=== PATIENT | female | born 1955 | race Caucasian/White ===

== ENCOUNTER → 2022-12-08 15:29 | Outpatient (BNVA) | payer MEDICARE, SELFPAY | PROVIDERS: Visit Provider Nurse Practitioner Family | DX: S69.92XA Unspecified injury of left wrist, hand and finger(s), initial encounter (principal); X58.XXXA Exposure to other specified factors, initial encounter; Y93.9 Activity, unspecified | CPT/HCPCS: 73110 ==

== ENCOUNTER → 2022-12-09 08:42 | Outpatient (BNVA) | payer MEDICARE, SELFPAY | PROVIDERS: Visit Provider Nurse Practitioner Family | DX: S62.102A Fracture of unspecified carpal bone, left wrist, initial encounter for closed fracture (principal); S52.502A Unspecified fracture of the lower end of left radius, initial encounter for closed fracture; V87.8XXA Person injured in other specified noncollision transport accidents involving motor vehicle (traffic), initial encounter; Y93.H2 Activity, gardening and landscaping | CPT/HCPCS: 73110; 99214 ==

== ENCOUNTER 2022-12-10 13:44 | Day surgery (SDC) | payer MEDICARE, SELFPAY ==
[2022-12-09 16:52] VITALS: BMI 20.3
[2022-12-10] MEDS: acetaminophen 1,000 MG/100 ML PIGGYBACK 400 MG IV (14:59)
[2022-12-10] MEDS: sodium chloride 0.9% 1,000 ML 30 ML IV (15:00)
[2022-12-10] MEDS: ketorolac 30 mg/mL INJ IVP (15:03)
[2022-12-10] MEDS: HYDROmorphone 1 mg/mL INJ 1 mL 0.5 MG IVP (15:12)
--- NOTE | 2022-12-10 15:32 | ANES.PREANE2 ---
Pre-Anesthetic Assessment Height/Weight: Height 1.7 m Weight 58.967 kg O2 Del Method Room Air 12/10/22 14:32 Preop Diagnosis: Left distal radius fracture Operation Date: 12/10/22 17:55 Proposed Procedures p ORIF Wrist ORIF Distal Radius 34045, S52.502A(Left) - Steve Ayers DO Familial anesthetic complications: none Was Beta Gómez taken within 24 hours: N/A Was Clonidine taken within 24 hours: N/A Last intake: Intake Last Liquid Date 12/09/22 Last Liquid Time 21:30 Last Solid Date 12/09/22 Last Solid Time 17:00 Social No alcohol and No tobacco Exam alert, oriented x 3, clear to auscultation bilaterally and regular rate & rhythm Airway Submandibular: within normal limits Cervical ROM: within normal limits Mallampati: Class II Dentition: full History/ROS No significant history except as noted Anesthetic Plan ASA status: 1 Anesthesia: General and Regional (specify below) (Left interscalene nerve blk) Medications/Allergies Home Medications Medication Instructions Recorded Confirmed Last Taken Type No Known Home Medications 12/08/22 12/09/22 Unknown History hydrocodone 5 mg-acetaminophen 325 1 tab PO Q6H PRN pain 7 days #28 12/10/22 Unknown Rx mg tablet tabs Allergies Allergy/AdvReac Type Severity Reaction Status Date / Time Penicillins Allergy ALGY-Hives Verified 12/09/22 16:49 Current Medications Generic Name Dose Route Start Last Admin Trade Name Freq PRN Reason Stop Dose Admin Hydromorphone HCl 0.5 mg 12/10/22 13:56 12/10/22 15:12 Hydromorphone 1 Mg/Ml Inj 1 Ml IVP 0.5 mg ONCE PRN Administration For preop pain/anxiety Sodium Chloride 1,000 mls @ 30 mls/hr 12/10/22 14:00 12/10/22 15:00 Sodium Chloride 0.9% IV 12/11/22 13:59 30 mls/hr .Q24H ANGELA Administration Data Anesthesia Cardiac Studies: No Data to Display Anesthesia Procedures Nerve Block Nerve Block 1: Main Anesthesia: general anesthesia Time Out Performed: Yes Consent: requested by attending/covering physician, from patient, risks and benefits reviewed and patient agrees to proceed Nerve block location: interscalene (left) Anesthesia monitors applied: pulse oximetry, EKG, BP cuff and oxygen Nerve block position: semi sitting Anesthetic Used: ropivicaine 0.5% Amount of anesthesia used (mL): 30 Ultrasound used to: recognize landmarks and visualize and ID brachial plexus Nerve Stimulator Used?: No Interscalene/Femoral BLK: 2 stimuplex 22 g needle used for position and inplane approach Injection: neg aspiration of heme Patient Tolerated Procedure: well Complications: none
--- NOTE | 2022-12-10 15:32 | W.PM.OPSUD ---
Surgery/Procedure H&P Update DATE OF PROCEDURE: December 10, 2022 DATE H&P PERFORMED: 12/08/22 CHANGES TO PREVIOUS DOCUMENTATION: None. No change in HPI from office visit on 12/08/2022. We talked about treatment options and through shared decision making patient elects to proceed with left distal radius open reduction internal fixation. All questions been answered at this time. Agrees to proceed with surgical intervention consent obtained. PREOP DIAGNOSIS: Left distal radius fracture PRIMARY INDICATION FOR PROCEDURE: Left distal radius fracture PLANNED PROCEDURE: Operation Date: 12/10/22 17:55 Proposed Procedures p ORIF Wrist ORIF Distal Radius 16209, S52.502A(Left) - Steve Ayers DO
[2022-12-10] MEDS: clindamycin 600 MG/50 ML PREMIX 100 MG IV (17:28)
[2022-12-10] MEDS: clindamycin 300 MG/50 ML PREMIX 100 MG IV (17:40)
--- NOTE | 2022-12-10 18:35 | PM.OP2 ---
Brief Operative Note Date of procedure: 12/10/22 Pre-op diagnosis: Left distal radius fracture Post-op diagnosis: same (Three-part intra-articular) Procedure Done: Left distal radius open reduction internal fixation, three-part intra-articular Surgeon: Steve Ayers Estimated blood loss (mL): 10 Complications: none Post-op Plan: Patient taken to PACU in stable condition recovering well, regional anesthesia still on and in effect. Patient will receive appropriate discharge instructions as well as postoperative pain medication. Splint on in place will stay on in place until follow-up. Nonweightbearing operative extremity. Will receive follow-up appointment in the orthopedic office in 2 weeks. Patient understands agrees with current plan. Questions answered. Condition: stable Disposition: same day Coding Level of Care Code Acute Code for Alexandria Mcbride
--- NOTE | 2022-12-10 18:36 | P.OP_ITS ---
Operative Report Date of procedure: December 10, 2022 Pre-op diagnosis: Preop Diagnosis Left distal radius fracture Procedure: Post-op diagnosis: Same, 3 part intra-articular Procedure done: Left distal radius open reduction internal fixation, 3-part intra-articular Implants: ?Arthrex left 3-hole standard volar locking plate Combination of locking and nonlocking screws 2.7 mm distal Combination of locking and nonlocking screws 3.5 mm proximal Surgeon: Steve Ayers DO Anesthesia: General and nerve Block (Regional) Estimated blood loss: 10 mL Tourniquet time: 24 minutes IV fluids: See anesthesia record Complications: None Findings: See operative report narrative Condition: stable Disposition: same day Brief History: Patient is a 67-year-old female who presented to my office for a [id number] left distal radius fracture.? Patient has significant comminution and shortening as well as dorsal angulation patient active and at this point time through shared decision making patient like to proceed with a left distal radius ORIF.? We had a detailed discussion in the office about nonoperative and operative intervention.? At this point time I feel through shared decision? best option would be open reduction internal fixation she is active and already has a considerable deformity?? as result through shared decision making patient would like to proceed with ORIF left distal radius fracture.? Detail the risk benefits complication alternatives to treatment option.? Understanding risk for surgery patient elects to proceed with surgical intervention.? All questions been answered at this time. Procedure: Patient seen and evaluated in the preoperative holding area.? Consent reviewed a nd signed with patient.? Correct extremities were marked and consent was reviewed and signed.? Patient was seen and evaluated by anesthesia department.? Underwent regional anesthesia. Once cleared for surgery pt was taken back to the operative suite.? Patient was then transported into the operative suite and kept on the OR gurney, all bony prominences well-padded patient was appropriate secured to bed in supine position.? An armboard was applied to the left upper extremity.? The left upper extremity had a nonsterile tourniquet applied.? Patient subsequently was then prepped and draped in standard orthopedic fashion she underwent anesthesia per the anesthesia department.? A final timeout was performed.? Patient received appropriate preoperative antibiotics. Esmarch was used exsanguinate the left upper extremity and tourniquet was insufflated to 250 mmHg. A standard modified FCR volar approach was performed to the left distal radius.? Sharp scalpel incision through skin and subcutaneous tissue.? I then switched to Littler dissection scissors identify the FCR tendon releases out of the sheath both proximally and distally mobilized the tendon ulnarly and then subsequently incised the floor of the FCR tendon sheath with care to just incise the floor.? I then bluntly sweep the FPL tendon muscle belly ulnarly and placed blunt self- retaining retractor.? At this point time I direct visualization of the pronator quadratus which was incised in standard L fashion off the radial and distal border in the distal radius and fracture site was scraped clean of interposed muscle belly.? I then identified the 3 part intra-articular distal radius fracture.? This was subsequently opened above and freed of interposing muscle belly as well as periosteum and fracture hematoma.? I did have to utilize my Pratts which was placed through the fracture pattern and disengage the fracture and performed manual manipulation and anatomic reduction of the distal radius fracture.? ?Once satisfied with reduction and had appropriate anatomic reduction of the volar cortex.? This was confirmed with mini C arm in multiple orthogonal imaging.? At this point time? I selected a Arthrex anatomic distal radius plate utilizing a standard 3-hole plate which would have appropriate spread distally.? This was then placed up to the distal radius while maintaining my reduction, pins were placed distally and proximally to confirm appropriate placement of the plate along the distal radius.? Minor adjustments were made and once I was satisfied I then subsequently drilled a bicortical 3.5 screw proximally in the oblong hole to allow for appropriate sliding of the distal radius plate appropriately to perfect position on the distal radius.? This had excellent fixation and purchase and brought the plate to bone.? While maintaining my reduction I then confirmed in multiple orthogonal imaging that my plate was in appropriate position.? Once satisfied with my position I then subsequently placed the peek targeting guide on the distal locking screws with Arthrex.? The locking guide was then subsequently loaded and I subsequently drilled and placed a fully threaded cortical screw to compress the plate to bone for the distal fracture fragment.? This was performed with plan to then remove this and placed a shorter locking screw had bicortical fixation with excellent purchase and appropriate reduction of my volar tilt and bringing plate to bone of the distal fragment and plate.? Once I was satisfied with my plate position as well as reduction of the distal radius which was confirmed on AP oblique and lateral imaging I then subsequently drilled measured and placed 4 locking screws around this cortical screw.? Then I subsequently removed the cortical screw and placed a shorter locking screw that did not penetrate the dorsal cortex.?? This completed my distal fixation.? I did utilize mini C arm to confirm appropriate placement of the screws these were all within the distal radius and no joint involvement within the radiocarpal joint or the DRUJ.? These had appropriate subchondral support and maintenance of reduction and fixation of the distal radius fracture.? ?I then turned my attention proximally and then I screwed in the locking guides for my final to screws proximally these were then subsequently drilled measured and appropriate length locking screws were then placed proximally with excellent fixation and locking technology into the plate.? This completed my construct.? The peek guide was subsequently removed and final imaging of the left distal radius open reduction internal fixation was taken of AP lateral as well and is orthogonal imaging.? I then took a inclination view which showed my radial styloid screw was out of the penetration of the joint.? All my distal screws wer e appropriate length did not penetrate dorsal cortex and did not penetrate the joint.? This completed my fixation.? Smooth wrist range of motion was then noted with no evidence of clicking. Wrist was then taken through pronation supination and stressed the DRUJ which was found to be stable.? The wound was then thoroughly irrigated.? Tourniquet was then subsequently deflated.? Hemostasis satisfactory with bipolar electrocautery.? I then subsequently placed interrupted 3-0 Vicryl sutures for subcutaneous tissue and then subsequently placed a nylon the skin for closure.? Incision was then dresse d with Xeroform 4 x 4's Kerlix cast padding and a volar Ortho-Glass splint was then applied with Gerardo wrap and placed in a sling.? Disposition: Patient taken to PACU in stable condition recovering well receive appropriate discharge instructions as well as pain medication postoperatively.? Maintain splint until follow-up.? Nonweightbearing to operative upper extremity We will follow-up with Dr. Ayers in the office in 2 weeks.? If any questions or concerns feel free to contact the office.
--- NOTE | 2022-12-10 18:36 | P.PCN_ITS ---
PACU note Narrative: Patient taken to PACU in stable condition regional anesthesia still on affect. Sling in place as well as volar splint to left upper extremity hand warm well- perfused brisk capillary refill less than 2 seconds. Unable assess motor or sensory secondary to regional anesthesia Exam: awake Disposition: discharged
[2022-12-10 18:40] VITALS: BP 126/65; PULSE 60; RESP 12; TEMP 36.4; O2SAT 98
--- NOTE | 2022-12-10 18:42 | PC.NURSE ---
Pt awake, A&O x3, pt denies any pain or nausea at this time. Dressing to left wrist C/D/I, left fingers p/w/d, cap refill < 3 seconds, sling in place. HOB elevated.
[2022-12-10 18:45] VITALS: BP 132/65; PULSE 63; RESP 16; O2SAT 97
[2022-12-10 18:50] VITALS: BP 143/75; PULSE 64; RESP 17; O2SAT 98
[2022-12-10 18:55] VITALS: BP 148/74; PULSE 61; RESP 17; TEMP 36.2; O2SAT 99
[2022-12-10 19:00] VITALS: BP 152/78; PULSE 62; RESP 17; TEMP 36.2; O2SAT 98
[2022-12-10] MEDS: HYDROcodone-acetaminophen 5-325 mg Tablet 1 TAB PO (19:21)
[2022-12-10] MEDS: HYDROcodone-acetaminophen 5-325 mg Tablet 2 TAB PO (19:22)
[2022-12-10 19:33] VITALS: BP 150/77; PULSE 63; RESP 17; TEMP 36.3; O2SAT 98
--- NOTE | 2022-12-11 | XR_ITS ---
WS: [id number] Left wrist, C-arm fluoroscopy views, 12/10/2022 Clinical Data: OR pic. ORIF left wrist Comparison: Left wrist, 12/09/2022 Findings: Dr. Abdalla performed an internal fixation of a distal left radial fracture with a ventral plate and sc rews. XR/XR wrist LT 2V [id number] Impression: Internal fixation of distal left radial fracture.
--- NOTE | 2022-12-11 06:58 | ANE.PACU2 ---
Inpatient post-anesthesia follow up: Airway intact: Yes Vital signs: Temperature 97.3 F Pulse Rate 63 Respiratory Rate 17 Blood Pressure 150/77 Pulse Oximetry 98 Oxygen Delivery Me thod Room Air Oxygen Flow Rate Fraction of Inspir ed Oxygen Hydration adequate: Yes Nausea and vomiting: No Pain level: 1 Mental status: Baseline
== END 2022-12-10 19:42 | disposition home or self-care (01) ==
PROVIDERS: PCP Nurse Practitioner Family; Visit Provider Student in an Organized Health Care Education/Training Program
PROC: (CPT 25609; principal; 2022-12-10 17:55)
DX: S52.572A Other intraarticular fracture of lower end of left radius, initial encounter for closed fracture (principal); X58.XXXA Exposure to other specified factors, initial encounter
CPT/HCPCS: 25609; 73100; 76000; C1713; J0131; J1100; J1170; J1885; J2704; J2795; J3490; J7030

== ENCOUNTER → 2022-12-23 09:09 | Outpatient (BNVA) | payer MEDICARE, SELFPAY | PROVIDERS: PCP Nurse Practitioner Family; Visit Provider Student in an Organized Health Care Education/Training Program | DX: S52.502A Unspecified fracture of the lower end of left radius, initial encounter for closed fracture (principal); S62.102A Fracture of unspecified carpal bone, left wrist, initial encounter for closed fracture; X58.XXXA Exposure to other specified factors, initial encounter | CPT/HCPCS: 73110; 97760; 99024; L3982 ==

== ENCOUNTER 2022-12-23 15:33 | Outpatient (CLI) | payer MEDICARE, SELFPAY | END 2022-12-23 15:34 | disposition home or self-care (01) | LOC: SPT 15:33 | PROVIDERS: PCP Nurse Practitioner Family; Visit Provider Student in an Organized Health Care Education/Training Program | DX: S52.502A Unspecified fracture of the lower end of left radius, initial encounter for closed fracture (principal); S62.102A Fracture of unspecified carpal bone, left wrist, initial encounter for closed fracture; X58.XXXA Exposure to other specified factors, initial encounter | CPT/HCPCS: 97760; 99024; L3982 ==

== ENCOUNTER → 2023-01-06 13:45 | Outpatient (BNVA) | payer MEDICARE, SELFPAY | PROVIDERS: PCP Nurse Practitioner Family; Visit Provider Nurse Practitioner Family | DX: M53.3 Sacrococcygeal disorders, not elsewhere classified; M70.61 Trochanteric bursitis, right hip | CPT/HCPCS: 73502; 99213 ==

== ENCOUNTER → 2023-01-20 09:20 | Outpatient (BNVA) | payer MEDICARE, SELFPAY | PROVIDERS: PCP Nurse Practitioner Family; Visit Provider Physician Assistant | DX: S52.502A Unspecified fracture of the lower end of left radius, initial encounter for closed fracture (principal); S62.102A Fracture of unspecified carpal bone, left wrist, initial encounter for closed fracture; X58.XXXA Exposure to other specified factors, initial encounter | CPT/HCPCS: 73110; 99024 ==

== ENCOUNTER 2023-02-10 06:00 | Outpatient (RCR) | payer MEDICARE, SELFPAY | END 2023-03-10 23:59 | disposition home or self-care (01) | LOC: MOT 06:00 | PROVIDERS: Visit Provider Physician Assistant | DX: S52.502D Unspecified fracture of the lower end of left radius, subsequent encounter for closed fracture with routine healing (principal); X58.XXXD Exposure to other specified factors, subsequent encounter | CPT/HCPCS: 97018; 97022; 97110; 97140; 97166 ==

== ENCOUNTER 2023-03-11 06:00 | Outpatient (RCR) | payer MEDICARE, SELFPAY | END 2023-04-09 23:59 | disposition home or self-care (01) | LOC: MOT 06:00 | PROVIDERS: Visit Provider Physician Assistant | DX: S52.502D Unspecified fracture of the lower end of left radius, subsequent encounter for closed fracture with routine healing (principal); X58.XXXD Exposure to other specified factors, subsequent encounter | CPT/HCPCS: 97018; 97022; 97110; 97140 ==

== ENCOUNTER → 2023-04-21 09:09 | Outpatient (BNVA) | payer MEDICARE, SELFPAY | PROVIDERS: Visit Provider Physician Assistant | DX: S52.502D Unspecified fracture of the lower end of left radius, subsequent encounter for closed fracture with routine healing; X58.XXXD Exposure to other specified factors, subsequent encounter; Z98.890 Other specified postprocedural states | CPT/HCPCS: 73110; 99213 ==